=== PATIENT | female | born 2000 | race African-American/Black ===

== ENCOUNTER 2019-10-13 12:51 | Emergency (ER) | payer BC ==
[2019-10-13 13:07] VITALS: BP 123/59; PULSE 74; TEMP 98.4
--- NOTE | 2019-10-13 13:09 | PDOC ---
Rapid Medical Evaluation Time Seen by Provider: 10/13/19 12:57 Medical Evaluation: 10/13/19 13:05 CC: rash x1 week PE: circumscribed plaque rash with some lesions having scales. No lesions to face, palms or soles of feet Orders: nothing Patient will proceed to ED for further evaluation. Discharge Disposition - Diagnosis Rash - Referrals - Patient Instructions - Post Discharge Activity
--- NOTE | 2019-10-13 13:19 | PDOC ---
History of Present Illness - General Chief Complaint: Rash Stated Complaint: RASH Time Seen by Provider: 10/13/19 12:57 History Source: Patient Exam Limitations: No Limitations Past History - Travel Traveled outside of the country in the last 30 days: No Close contact w/someone who was outside of country & ill: No - Past Medical History Allergies/Adverse Reactions: Allergies Allergy/AdvReac Type Severity Reaction Status Date / Time No Known Allergies Allergy Verified 10/13/19 13:08 COPD: No - Psycho Social/Smoking Cessation Hx Smoking History: Never smoked Hx Alcohol Use: Yes Drug/Substance Use Hx: No Review of Systems - Review of Systems Able to Perform ROS?: Yes Comments:: 10/13/19 19:37 CONSTITUTIONAL: Absent: fever, chills, diaphoresis, generalized weakness, malaise, loss of appetite MUSCULOSKELETAL: Absent: myalgia, arthralgia, joint swelling SKIN: Present: Rash absent: itching, pallor NEUROLOGIC: Absent: headache, focal weakness or paresthesias, dizziness, unsteady gait, seizure, mental status changes, bladder or bowel incontinence PSYCHIATRIC: Absent: anxiety, depression, suicidal or homicidal ideation, hallucinations. Is the patient limited [place]ijani proficient: No *Physical Exam - Vital Signs Last Vital Signs Temp Pulse Resp BP Pulse Ox 98.4 F 74 16 123/59 L 99 10/13/19 13:03 10/13/19 13:03 10/13/19 13:03 10/13/19 13:03 10/13/19 13:03 - Physical Exam 10/13/19 19:38 GENERAL: The patient is awake, alert, and fully oriented, in no acute distress. HEAD: Normal with no signs of trauma. EYES: Pupils equal, round and reactive to light, extraocular movements intact, sclera anicteric, conjunctiva clear. EXTREMITIES: Normal range of motion, no edema. NEUROLOGICAL: Normal speech, normal gait. PSYCH: Normal mood, normal affect. SKIN:Excoriated with scaling oval papulosquamous lesions to the trunk, chest, proximal upper extremities and proximal lower extremities in a Buckhorn tree like distribution. Warm, Dry, normal turgor, no rashes or lesions noted. Medical Decision Making - Medical Decision Making 10/13/19 19:40 The patient is a 19-year-old female no past medical history who presents to the ER with 1 week of a rash. She states that she first noticed a spot on her chest. She states that a couple days later the rash moved to her abdomen, torso back upper arms and upper legs. She states that the rash is itchy and she noticed that her skin is dry. She states that initially the rash was red. Denies fevers, chills, new exposures. A/P: Pityriasis rosacea. On exam patient with a excoriated papulosquamous rash to the torso, back upper arms and upper legs in a Lori tree like distribution. Patient did state there was one herald patch on her chest before the rest of the rash came out. We will treat as a pityriasis rosea at this time. Recommend Benadryl and calamine lotion for itch. Explained that this is a self-limiting rash that should improve within 2 to 6 weeks. Dermatology follow-up given for further management and evaluation of symptoms. Discharge home I discussed the physical exam findings, ancillary test results and final diagnoses with the patient. I answered all of the patient's questions. The patient was satisfied with the care received and felt comfortable with the discharge plan and treatment plan. The Patient agrees to follow up with the primary care physician/specialist within 24-72 hours. Return precautions were given. Discharge - Discharge Information Problems reviewed: Yes Clinical Impression/Diagnosis: Pityriasis rosea Condition: Stable Disposition: HOME - Admission No - Follow up/Referral Referrals: Aziza Beavers MD [Staff Physician] - - Patient Discharge Instructions Patient Printed Discharge Instructions: DI for Pityriasis Rosea Additional Instructions: You have pityriasis rosea. This is a rash due to a virus. Please continue take Benadryl 25 mg every 8 hours as needed for itching. Do not drink or drive after taking this medication as it may make you drowsy. You may apply chamomile lotion to the affected areas. Please moisturize your skin as it is very dry as well. You may use Eucerin anti -itch lotion and body wash to help with your symptoms. The rash will last for approximately 2 to 6 weeks and should improve a little bit every day. Please follow-up with dermatology this week without fail for further evaluation of your symptoms. Return to the ER for fever, worsening symptoms or if you have any changes in your symptoms - Post Discharge Activity Work/Back to School Note: Back to Work
== END 2019-10-13 13:49 | disposition home or self-care (01) ==
LOC: JERFT 12:51
DX: L42 Pityriasis rosea (principal)
CPT/HCPCS: 99282-25